=== PATIENT | male | born 1950 | race Caucasian/White ===

== ENCOUNTER → 2018-10-14 09:57 | Outpatient (CLI) | payer OTHER | END | disposition home or self-care (01) | LOC: D.HCCARDIO 09:57 | DX: R94.31 Abnormal electrocardiogram [ECG] [EKG] (principal) ==

== ENCOUNTER → 2019-03-15 14:28 | Outpatient (CLI) | payer OTHER ==
[~2019-03-15 14:28] MED LIST: ASPIRIN81 MG PO; CARDIZEM 90 MG90 MG PO; GLUCOPHAGE500 MG PO; HUMALOG 30100 UNITS/ SC; HUMULIN R100 U/ML SC; LISINOPRIL-HCT1 EAC4 PO; NEURONTIN 300300 MG PO; PLAVIX75 MG PO; SYNTHROID100 MCG PO; TOUJEO SOL300 UNIT/1 SC; ZOCOR20 MG PO
[2019-04-13 10:39] VITALS: BMI 34.8
== END | disposition home or self-care (01) ==
LOC: D.US 14:28
PROVIDERS: ATTEND Family Medicine
DX: R09.89 Other specified symptoms and signs involving the circulatory and respiratory systems (principal)

== ENCOUNTER → 2019-04-06 13:30 | Outpatient (CLI) | payer OTHER ==
[2019-04-13 10:39] VITALS: BMI 34.8
== END | disposition home or self-care (01) ==
LOC: D.CT 13:30
PROVIDERS: ATTEND Internal Medicine Cardiovascular Disease
DX: I65.21 Occlusion and stenosis of right carotid artery (principal)

== ENCOUNTER 2019-04-11 14:59 | Inpatient (IN) | payer OTHER ==
[~2019-04-11] VITALS: Ht 180.3 cm; Wt 114.5 kg
[2019-04-11] MEDS ORDERED: ZOCOR20 MG PO (15:26)
[2019-04-11] MEDS ORDERED: SYNTHROID100 MCG PO (15:27)
[2019-04-11] MEDS ORDERED: LISINOPRIL-HCT1 EAC4 PO (15:27)
[2019-04-11] MEDS ORDERED: NEURONTIN 300300 MG PO (15:27)
[2019-04-11] MEDS ORDERED: TOUJEO SOL300 UNIT/1 SC (15:28)
[2019-04-11] MEDS ORDERED: HUMULIN R100 U/ML SC (15:29)
[2019-04-11] MEDS ORDERED: GLUCOPHAGE500 MG PO (15:29)
[2019-04-11] MEDS ORDERED: CARDIZEM 90 MG90 MG PO (15:30)
[2019-04-11] MEDS ORDERED: PLAVIX75 MG PO (15:31)
[2019-04-11 16:31] LABS: APPEARANCE CLEAR (CLEAR); BILIRUBIN NEGATIVE (NEGATIVE); COLOR YELLOW (YELLOW); GLUCOSE NEGATIVE (NEGATIVE); KETONE NEGATIVE (NEGATIVE); NITRITE NEGATIVE (NEGATIVE); PROTEIN NEGATIVE (NEGATIVE); SPECIFIC GRAVITY 1.015 (1.005-1.020); UROBILINOGEN NORMAL (NORMAL)
[2019-04-11 16:49] LABS: HEMATOCRIT 37.7 % (42.0-54.0); MCH 30.9 pg (26.0-34.0); MCHC 34.5 g/dL (31.0-37.0); MCV 89.5 fL (80.0-100.0); MEAN PLATELET VOLUME 11.2 fL (7.4-10.4); RBC 4.21 10x6/uL (4.20-6.10); RDW 13.8 % (11.5-14.5)
[2019-04-11 16:58] LABS: INR 1.1 (0.85-1.17); PROTIME 13.7 SECONDS (11.6-15.0)
[2019-04-11 16:59] LABS: APTT 32.1 SECONDS (22.8-39.4)
[2019-04-11 17:30] LABS: ALBUMIN 3.9 g/dL (3.4-5.0); ANION GAP 14.9 mmol/L (8-16); BILIRUBIN - TOTAL 0.27 mg/dL (0.2-1.3); CALCIUM 9.2 mg/dL (8.5-10.1); CARBON DIOXIDE 26.5 mmol/L (21.0-32.0); CREATININE - SERUM 1.1 mg/dL (0.6-1.3); POTASSIUM - SERUM 4.4 mmol/L (3.5-5.1); PROTEIN - SERUM 7.3 g/dL (6.4-8.2)
[2019-04-12] VITALS (80 sets, daily range): BP systolic 105–174; BP diastolic 45–99; BMI 33.6; BMI 34.9
[2019-04-12] MEDS ORDERED: HUMALOG 30100 UNITS/ SC (05:22)
--- NOTE | 2019-04-12 10:50 | NUR ---
PT RECIEVED TO ROOM ALERT AND ORIENTED ON 6L O2 R CEA INCISION CDI WITH ALFONSO DRAIN COMPRESSED, ICE APPLIED, L SUBCLAVIAN CVL DRESSING CDI, SEE IV FLOWSHEET, R RADIAL A LINE ZEROED WITH GOOD WAVEFORM WRIST PROTECTOR IN PLACE, CRITICORE HOSKINS DRAINING YELLOW URINE, ABLE TO FOLLOW ALL COMMANDS AND MOVE ALL EXTREMETIES, FAMILY UPDATED BY DR WORRELL, WILL CONTINUE TO MONITOR
--- NOTE | 2019-04-12 18:22 | NUR ---
1200 REFUSED LUNCH 1300 REPOSITIONED 1500REPOSITIONED 1700 DRANK CHICKEN BROTH FOR DINNER, REPOSITIONED, SEE IV FLOWSHEET FOR TITRATIONS
--- NOTE | 2019-04-12 19:00 | NUR ---
PT AOX4, PUPILS EQUAL AND REACTIVE. SNOW TECHNICIAN EQUAL, MOVES EXTREMITIES X4 AGAINST GRAVITY. RESPIRATIONS UNLABORED, LUNG SOUNDS CLEAR/DIMINISHED. SPO2 93, 1L O2 VIA NC. S1S2 HEARD, PERIPHERAL PULSES PRESENT. R NECK WITH DRESSING CDI, NO TRACHEAL DEVIATION PRESENT. R CHEST ALFONSO WITH DRSG CDI, COMPRESSED. NO COMPLAINTS OF PAIN, VSS. DENIES NEEDS. CALL LIGHT WITHIN PT REACH, CPOC.
--- NOTE | 2019-04-12 21:00 | NUR ---
NO CHANGES AT THIS TIME. PT RESTING QUIELTY. REPOSITIONED FOR COMFORT. REACHING 2000 X10 ON I/S. VSS, DENIES PAIN AT THIS TIME. CALL LIGHT AND BEDSIDE TABLE WITHIN PT REACH. CPOC.
--- NOTE | 2019-04-12 23:00 | NUR ---
REASSESSMENT COMPLETE, NO NEW CHANGES AT THIS TIME. PT REPOSITIONED FOR COMFORT, PROMINENCES BRIDGED. COMPLETED I/S REACHING UP TO 2000 X10. FRESH WATER TO BEDSIDE. DENIES FURTHER NEEDS. CALL LIGHT AND BEDSIDE TABLE WITHIN PT REACH. CPOC.
[2019-04-13] VITALS (99 sets, daily range): BP systolic 98–170; BP diastolic 47–76; Ht 180.3 cm; Wt 114.5 kg
--- NOTE | 2019-04-13 01:00 | NUR ---
PT RESTING QUIETLY, REPOSITIONED FOR COMFORT. R NECK DRSG CDI, R ALFONSO COMPRESSED. AOX4, TONGUE MIDLINE, RESAW OPERATOR EQUAL. VSS, CPOC.
--- NOTE | 2019-04-13 03:00 | NUR ---
REASSESSMENT COMPLETE, NO NEW CHANGES AT THIS TIME. PT REPOSITIONED FOR COMFORT, PARTIAL LINEN CHANGE PROVIDED. I/S COMPLETED REACHING 2000 X10. DENIES PAIN AT THIS TIME, VSS. CPOC.
--- NOTE | 2019-04-13 05:40 | NUR ---
DEVAN AT BEDSIDE, ALFONSO DRAIN D/C'D, TOLERATED WELL. VSS.
--- NOTE | 2019-04-13 07:43 | NUR ---
PT AWAKE, A&O. DENIES PAIN. SHIFT ASSESSMENT COMPLETE. PT REMAINS ON NITRO AND CLEVIPREX GTT. HOSKINS CATHETER IN USE. CLEAR YELLOW URINE. RIGHT RADIAL ART LINE NOTED. INCISION AT RIGHT NECK C,D,I. DRESSING AT RIGHT UPPER CHEST/LOWER NECK FROM REMOVED ALFONSO DRAIN SHOWS SOME PINK TINGE ON DRESSING.
--- NOTE | 2019-04-13 11:09 | NUR ---
ART LINE REMOVED, NO BLEEDING, TIP INTACT. HOSKINS CATHETER REMOVED, TIP INTACT.
--- NOTE | 2019-04-13 13:58 | OP ---
PATIENT NAME: ALLEN LOMAX V MEDICAL RECORD: [id number] :48 LOCATION:[facility] D.CV ADMISSION DATE:04/12/19 SURGEON: KRISHNA WORRELL MD DATE OF OPERATION: 04/12/2019 SURGEON: Krishna Worrell MD ANESTHESIA: General, Dr. Salinas. OPERATION PERFORMED: Right carotid endarterectomy with patch angioplasty. PREOPERATIVE DIAGNOSIS: Severe right internal carotid artery stenosis. POSTOPERATIVE DIAGNOSIS: Severe right internal carotid artery stenosis. INDICATIONS FOR OPERATION: Severe right internal carotid artery stenosis. FINDINGS AT OPERATION: Severe right internal carotid artery stenosis with an area of stenosis greater than 80%. ESTIMATED BLOOD LOSS: Less than 100 mL. DESCRIPTION OF PROCEDURE: After informed consent, adequate preoperative medication evaluation, the patient was brought to the operating room, placed on the table in supine position. After induction of general endotracheal anesthesia and application of appropriate monitoring devices, the right neck was prepped and draped in a sterile field, utilizing Betadine scrub, alcohol, and Betadine solution. A Betadine-impregnated drape was also used. An oblique incision was made in the skin crease. Dissection carried down to the fascia. Hemostasis maintained with electrocautery. Facial vein was identified and divided. Utilizing sharp dissection, the common carotid, internal and external carotid arteries were dissected free from surrounding structures, protecting the neurological structures. The patient was given a calculated dose of heparin, after 3 minutes, clamps were applied. After 2 minutes, no EEG change. The arteriotomy was made and extended with Flowers scissors. Artery underwent endarterectomy sharply. Artery underwent extensive debridement and irrigation. Utilizing a CorMatrix vascular patch, a running 6-0 Prolene suture, the arteriotomy was closed with a patch angioplasty technique. All maneuvers to remove trapped air were performed. The patient was given a calculated dose of protamine to reverse the heparin. Hemostasis was achieved. A #7 Ralph-Martinez drain was left in depths of the wound and brought out through the base of the neck. Neck was again irrigated. Instrument and sponge count were correct times 2. Neck was closed in layers utilizing 3-0 Vicryl on the platysma, 5-0 subcuticular Monocryl on the skin. Sterile dressings were applied. The patient tolerated the procedure well and was transferred to the CV ICU in satisfactory condition. TRANSINT:[id number] Voice Confirmation ID: [id number] DOCUMENT ID: [id number] OPERATIVE REPORT [id number] ALLEN LOMAX EDWARD MD at 1358 CC: [id number] DICTATION DATE: 04/12/19 1007 SKIRT PANEL ASSEMBLER: 04/12/19 1041 ADM IN [facility] [address] [place] [address]
--- NOTE | 2019-04-13 14:04 | NUR ---
UP IN BED AWAKE AT THIS TIME. NO ACUTE DISTRESS NOTED. PT ASSISTED WITH REPOSITION Q2H. WILL CONTINUE PLAN OF CARE.
--- NOTE | 2019-04-13 15:49 | MORECARE ---
CASE MANAGEMENT DISCHARGE SUMMARY PATIENT: ALLEN LOMAX V UNIT: [id number] ADM DATE: 04/12/19 AGE: 68 : 49 SEX: M ROOM/BED: [facility] AUTHOR: PAU JACOB PHYSICIAN: REFERRING PHYSICIAN: KRISHNA WORRELL MD DATE OF SERVICE: 04/13/19 Discharge Plan Patient Name: ALLEN LOMAX [facility] : 1950 Planned Disposition: Home with Home Health Anticipated Discharge Date: Discharge Date: Expected LOS: Initial Reviewer: [email or web address] Initial Review Date: 04/12/2019 Generated: 04/13/19 4:49 pm DCPIA - Discharge Planning Initial Assessment Updated by [email or web address]: Mary Vigil on 04/13/19 3:47 pm * Is the patient Alert and Oriented? Yes * How many steps to enter\exit or inside your home? * PCP PULLING * [facility] * Preadmission Environment Home with Family * ADLs Independent * Equipment Cane * List name and contact numbers for known caregivers / representatives who currently or will assist patient after discharge: NATALIYA LOMAX - - [phone] * Verbal permission to speak to the caregivers and representatives has been obtained from the patient. Yes * Community resources currently utilized None * Please name any agencies selected above. REQUESTING HH AT DISCHARGE * Additional services required to return to the preadmission environment? No * Can the patient safely return to the preadmission environment? Yes * Has this patient been hospitalized within the prior 30 days at any hospital? No Patient Name: ALLEN LOMAX Page [id number] at 1549 All edits/amendments must be made on the electronic document DICTATION DATE: 04/13/191548 MODEL AND MOLD MAKER: AJ 04/13/19 1549 RPT#: [id number] DC DATE: STATUS: ADM IN [facility] [address] [place] [address] END OF REPORT
--- NOTE | 2019-04-13 15:56 | MORECARE ---
CASE MANAGEMENT DISCHARGE SUMMARY PATIENT: ALLEN LOMAX V UNIT: [id number] ADM DATE: 04/12/19 AGE: 68 : 49 SEX: M ROOM/BED: D.[facility] AUTHOR: CECIL,DOC PHYSICIAN: REFERRING PHYSICIAN: KRISHNA WORRELL MD DATE OF SERVICE: 04/13/19 Discharge Plan Patient Name: ALLEN LOMAX Facility: [facility]:[place] : 1950 Planned Disposition: Home with Home Health Anticipated Discharge Date: Discharge Date: Expected LOS: Initial Reviewer: [email or web address] Initial Review Date: 04/12/2019 Generated: 04/13/19 4:56 pm Comments DCP- Discharge Planning Updated by [email or web address]: Mary Vigil on 04/13/19 2:[address] Patient Name: ALLEN LOMAX Admission Status: Urgent Accout number: [id number] Admission Date: 04-12-2019 : 1950 Admission Diagnosis: Attending: KRISHNA WORRELL Current LOS: 1 Anticipated DC Date: Planned Disposition: Home with Home Health Primary Insurance: [employer] Discharge Planning Comments: CM met with patient at bedside after explaining CM role and obtaining verbal consent. Patient lives at home with his Nataliya where he is independent with his care and plans to return there upon discharge. Patient feels this would be a safe discharge. CM discussed availability / needs of home health and medical equipment. Patient denies any discharge needs at this time. Patient and spouse stated that PT recommended he have HH to eval for stability. CHUN signed for HH. Patient states he will have his family drive him home upon discharge. CM will continue to follow and assist as needed with discharge planning / needs. Casino Porter: Mary Vigil DCPIA - Discharge Planning Initial Assessment Updated by [email or web address]: Mary Vigil on 04/13/19 3:47 pm * Is the patient Alert and Oriented? Yes * How many steps to enter\exit or inside your home? * PCP PULLING * [facility] * Preadmission Environment Home with Family * ADLs Independent * Equipment Cane * List name and contact numbers for known caregivers / representatives who currently or will assist patient after discharge: NATALIYA LOMAX - - [phone] * Verbal permission to speak to the caregivers and representatives has been obtained from the patient. Yes * Community resources currently utilized None * Please name any agencies selected above. REQUESTING HH AT DISCHARGE * Additional services required to return to the preadmission environment? No * Can the patient safely return to the preadmission environment? Yes * Has this patient been hospitalized within the prior 30 days at any hospital? No Coverage Notice Reviewer: [email or web address] Wero Vigil Notice Issued Date-Time: 04/13/2019 15:49 Notice Type: Patient Choice Letter Notice Delivered To: Family Member Relationship to Patient: Spouse Social Worker Assistant Name: Delivery Method: HAND - Hand Delivered Isabella Days: Prior Verbal Notification: Recipient Understood Notice: Yes Recipient Signature: Yes Med Rec Note Co-signed by Attending: Coverage Notice Comment: Last DP export: 04/13/19 2:49 p Patient Name: ALLEN LOMAX Page [phone] at 1556 All edits/amendments must be made on the electronic document DICTATION DATE: 04/13/19 1556 EDUCATIONAL PSYCHOLOGY PROFESSOR: AJ 04/13/19 1556 RPT#: [id number] DC DATE: STATUS: ADM IN [facility] [address] [place] [address] END OF REPORT
--- NOTE | 2019-04-13 16:03 | NUR ---
UP IN CHAIR VISITING WITH AT THIS TIME. NO ACUTE DISTRESS NOTED. VSS. WILL CONTINUE PLAN OF CARE.
--- NOTE | 2019-04-13 18:01 | NUR ---
CONTINENT VOID NOTED VIA URINAL AT THIS TIME. 250 ML APPROX. NO ACUTE DISTRESS NOTED. PT UP IN CHAIR. CALL LIGHT IN REACH. IV DRIPS NITRO AND CLEXIPREX TITRATED TO ORDER, SEE IV FLOWSHEET. WILL CONTINUE PLAN OF CARE.
--- NOTE | 2019-04-13 19:45 | NUR ---
REPORT REC'D AND PATIENT REC'D UP IN CHAIR, AWAKE, ALERT, ORIENTED X 4, LDLSCL DRSG CDI WITH PLASMALYTE @ 3OCC/HR, CLEVIPREX @ 5MG/HR, AND NITROGLYCERIN @ 12 CC DECREASED TO 11CC/HR OR 36.67MCG/MIN, RIGHT NECK DRSG CDI, RIGHT UPPER CHEST DRSG TO PREVIOUS SITE CDI, PT MAEE, SMILE SYMMETRICAL, PT REQUESTING TO GET IN BED, LINEN CHANGE PROVIDED, AND PT ASSISTED X 1 OVER TO BED, BED CONTROL IN REACH AND PT INSTRUCTED ON USE, CALL LIGHT IN REACH, SR UP X 2, BED IN LOW POSITION.
--- NOTE | 2019-04-13 20:05 | NUR ---
AT BS, VISITING WITH PATIENT.
--- NOTE | 2019-04-13 21:00 | NUR ---
FSBS 205, EVENING MEDS GIVEN WITH WATER, PT HAD NO DIFFICULTY SWALLOWING, VISITIORS REMAIN AT BS, UPDATE GIVEN AND QUESTIONS ANSWERED, 4 UNITS HUMALOG GIVEN SUBQUE, PT DENIES FURTHER NEEDS, BED IN LOW POSITION, CALL LIGHT IN REACH.
--- NOTE | 2019-04-13 23:30 | NUR ---
REASSESSMENT COMPLETED, PT REMAINS ORIENTED X 4, O2 SAT DECREASED TO 86% WHILE SLEEPING, PT AWAKENED AND DEEP BREATHING AND COUGHING DONE, O2 INCREASED TO 3 LITERS, O2 SAT 90%, WILL CONT TO MONITOR FOR CHANGES.
[2019-04-14] VITALS (30 sets, daily range): BP systolic 109–174; BP diastolic 54–76
--- NOTE | 2019-04-14 00:45 | NUR ---
NITROGLYCERIN WEANED OFF.
--- NOTE | 2019-04-14 01:20 | NUR ---
PT RESTING EYES CLOSED, RESP EVEN AND UNLABORED, O2 SAT DECREASED TO 82% WHILE SLEEPING, PT APPEARS TO HAVE PERIODS OF APNEA, CM-SR WITH FREQUENT PAC'S, BP STABLE WEANING CLEVIPREX TOLERATED.
--- NOTE | 2019-04-14 02:45 | NUR ---
PT ASSISTED OUT OF BED AND UP TO BSC, O2 SAT 96%, PT HAD SMALL FORMED STOOL AND VOIDED, GOT SELF BACK TO BED BEFORE TURNING SENIOR SUPPORT ENGINEER LIGHT, LINES STRAIGHTENED AND SR UP X 2, BEDSIDE TABLE, AND CALL LIGHT IN REACH.
--- NOTE | 2019-04-14 03:00 | NUR ---
REASSESSMENT COMPLETED, PT REPOSITIONED UP IN BED, PT PULLING 1750 - 2000 ON IS AT THE TIME, O2 SAT 94%, PT REQUESTING ICE CHIPS, ICE CHIPS PROVIDED, PT DENIES PAIN OR OTHER NEEDS.
--- NOTE | 2019-04-14 04:00 | NUR ---
NO CHANGES IN STATUS
--- NOTE | 2019-04-14 06:00 | NUR ---
AM MEDS GIVEN, FSBS 198 2 UNITS HUMALOG GIVEN SUBQUE, PT DENIES PAIN OR OTHER NEEDS.
[2019-04-14] MEDS ORDERED: ASPIRIN81 MG PO (08:54)
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
--- NOTE | 2019-04-14 13:08 | NUR ---
[address] WORRELL-DHIRAJ TO DISCHARGE-DISCHARGE INSTRUCTIONS GIVEN L CVL REMOVED PER PROTOCOL-HEMOSTASIS OBTAINED 1220-PT DISCHARGED IN CARE OF HOME
--- NOTE | 2019-04-14 13:18 | MORECARE ---
CASE MANAGEMENT DISCHARGE SUMMARY PATIENT: ALLEN LOMAX V UNIT: [id number] ADM DATE: 04/12/19 AGE: 68 : 49 SEX: M ROOM/BED: D[facility] AUTHOR: CECIL,DOC PHYSICIAN: REFERRING PHYSICIAN: KRISHNA WORRELL MD DATE OF SERVICE: 04/14/19 Discharge Plan Patient Name: ALLEN LOMAX Facility: [facility] : 1950 Planned Disposition: Home with Home Health Anticipated Discharge Date: Discharge Date: Expected LOS: Initial Reviewer: [email or web address] Initial Review Date: 04/12/2019 Generated: 04/14/19 2:18 pm Comments DCP- Discharge Planning Updated by [email or web address]: Mary Vigil on 04/13/19 2:[address] Patient Name: ALLEN LOMAX Admission Status: Urgent Accout number: [id number] Admission Date: 04-12-2019 : 1950 Admission Diagnosis: Attending: KRISHNA WORRELL Current LOS: 1 Anticipated DC Date: Planned Disposition: Home with Home Health Primary Insurance: [employer] Discharge Planning Comments: CM met with patient at bedside after explaining CM role and obtaining verbal consent. Patient lives at home with his Nataliya where he is independent with his care and plans to return there upon discharge. Patient feels this would be a safe discharge. CM discussed availability / needs of home health and medical equipment. Patient denies any discharge needs at this time. Patient and spouse stated that PT recommended he have HH to eval for stability. CHUN signed for HH. Patient states he will have his family drive him home upon discharge. CM will continue to follow and assist as needed with discharge planning / needs. [employer] Open Stack Administrator: Mary Vigil DCPIA - Discharge Planning Initial Assessment Updated by [email or web address]: Mary Vigil on 04/13/19 3:47 pm * Is the patient Alert and Oriented? Yes * How many steps to enter\exit or inside your home? * PCP P[facility]ING * [facility] * Preadmission Environment Home with Family * ADLs Independent * Equipment Cane * List name and contact numbers for known caregivers / representatives who currently or will assist patient after discharge: NATALIYA LOMAX - - [phone] * Verbal permission to speak to the caregivers and representatives has been obtained from the patient. Yes * Community resources currently utilized None * Please name any agencies selected above. REQUESTING HH AT DISCHARGE * Additional services required to return to the preadmission environment? No * Can the patient safely return to the preadmission environment? Yes * Has this patient been hospitalized within the prior 30 days at any hospital? No External Providers [facility] Next Contact Date: Service Request Date: Service Type: Resolution: Reviewer: Comments: Coverage Notice Reviewer: [id number] - Mary Vigil Notice Issued Date-Time: 04/13/2019 15:49 Notice Type: Patient Choice Letter Notice Delivered To: Family Member Relationship to Patient: Spouse Police Specialist Name: Delivery Method: HAND - Hand Delivered Isabella Days: Prior Verbal Notification: Recipient Understood Notice: Yes Recipient Signature: Yes Med Rec Note Co-signed by Attending: Coverage Notice Comment: Last DP export: 04/13/19 2:56 p Patient Name: ALLEN LOMAX Page [id number] at 1318 All edits/amendments must be made on the electronic document DICTATION DATE: 04/14/19 1318 THIRD LOADER: AJ 04/14/19 1318 RPT#: [id number] DC DATE: STATUS: ADM IN [facility] [address] [place] [address] END OF REPORT
--- NOTE | 2019-04-14 14:18 | MORECARE ---
CASE MANAGEMENT DISCHARGE SUMMARY PATIENT: ALLEN LOMAX V UNIT: [id number] ADM DATE: 04/12/19 AGE: 68 : [birth year] SEX: M [facility] AUTHOR: CECIL,DOC PHYSICIAN: REFERRING PHYSICIAN: KIRSHNA WORRELL MD DATE OF SERVICE: 04/14/19 Discharge Plan Patient Name: ALLEN LOMAX Facility: [facility]:[place] : 1950 Planned Disposition: Home with Home Health Anticipated Discharge Date: Discharge Date: 04/14/2019 Expected LOS: Initial Reviewer: [email or web address] Initial Review Date: 04/12/2019 Generated: 04/14/19 3:18 pm Comments DCP- Discharge Planning Updated by [email or web address]: Mary Vigil on 04/13/19 2:[address] Patient Name: ALLEN LOMAX Admission Status: Urgent Accout number: [id number] Admission Date: 04-12-2019 : 1950 Admission Diagnosis: Attending: KRISHNA WORRELL Current LOS: 1 Anticipated DC Date: Planned Disposition: Home with Home Health Primary Insurance: [employer] Discharge Planning Comments: CM met with patient at bedside after explaining CM role and obtaining verbal consent. Patient lives at home with his Nataliya where he is independent with his care and plans to return there upon discharge. Patient feels this would be a safe discharge. CM discussed availability / needs of home health and medical equipment. Patient denies any discharge needs at this time. Patient and spouse stated that PT recommended he have HH to eval for stability. CHUN signed for HH. Patient states he will have his family drive him home upon discharge. CM will continue to follow and assist as needed with discharge planning / needs. Beef Skinner: Mary Vigil DCPIA - Discharge Planning Initial Assessment Updated by [email or web address]: Mary Vigil on 04/13/19 3:47 pm * Is the patient Alert and Oriented? Yes * How many steps to enter\exit or inside your home? * PCP PULLING * [facility] * Preadmission Environment Home with Family * ADLs Independent * Equipment Cane * List name and contact numbers for known caregivers / representatives who currently or will assist patient after discharge: NATALIYA LOMAX - - [phone] * Verbal permission to speak to the caregivers and representatives has been obtained from the patient. Yes * Community resources currently utilized None * Please name any agencies selected above. REQUESTING HH AT DISCHARGE * Additional services required to return to the preadmission environment? No * Can the patient safely return to the preadmission environment? Yes * Has this patient been hospitalized within the prior 30 days at any hospital? No Coverage Notice Reviewer: [id number] Wero Vigil Notice Issued Date-Time: 04/13/2019 15:49 Notice Type: Patient Choice Letter Notice Delivered To: Family Member Relationship to Patient: Spouse Magento Web Developer Name: Delivery Method: HAND - Hand Delivered Isabella Days: Prior Verbal Notification: Recipient Understood Notice: Yes Recipient Signature: Yes Med Rec Note Co-signed by Attending: Coverage Notice Comment: Last DP export: 04/14/19 12:18 p Patient Name: ALLEN LOMAX Page [id number] at 1418 All edits/amendments must be made on the electronic document DICTATION DATE: 04/14/19 1418 MAGENTO WEB DEVELOPER: AJ 04/14/19 1418 RPT#: [id number] DC DATE:04/14/19 STATUS: DIS IN [facility] [address] [place] [address] END OF REPORT
--- NOTE | 2019-04-14 16:11 | MORECARE ---
CASE MANAGEMENT DISCHARGE SUMMARY PATIENT: ALLEN LOMAX V UNIT: [id number] ADM DATE: 04/12/19 AGE: 68 : 48 SEX: M ROOM/BED: [facility] AUTHOR: CECIL,DOC PHYSICIAN: REFERRING PHYSICIAN: KRISHNA WORRELL MD DATE OF SERVICE: 04/14/19 Discharge Plan Patient Name: ALLEN LOMAX Facility: [facility]:[place] : 1950 Planned Disposition: Home with Home Health Anticipated Discharge Date: Discharge Date: 04/14/2019 Expected LOS: Initial Reviewer: [email or web address] Initial Review Date: 04/12/2019 Generated: 04/14/19 5:11 pm Comments DCP- Discharge Planning Updated by [email or web address]: Mary Vigil on 04/14/19 3:[address] D/C HOME W [facility] CM CONTACTED RAY WITH [facility] AND FAXED RECORDS. CANDACE STATED THEY WOULD BE OUT TO ADMIT PATIENT ON WEDNESDAY FOR PT. TO FOLLOW HH. DCP- Discharge Planning Updated by [email or web address]: Mary Vigil on 04/13/19 2:[address] Patient Name: ALLEN LOMAX Admission Status: Urgent Accout number: [id number] Admission Date: 04-12-2019 : 1950 Admission Diagnosis: Attending: KRISHNA WORRELL Current LOS: 1 Anticipated DC Date: Planned Disposition: Home with Home Health [facility] Discharge Planning Comments: CM met with patient at bedside after explaining CM role and obtaining verbal consent. Patient lives at home with his Nataliya where he is independent with his care and plans to return there upon discharge. Patient feels this would be a safe discharge. CM discussed availability / needs of home health and medical equipment. Patient denies any discharge needs at this time. Patient and spouse stated that PT recommended he have HH to eval for stability. CHUN signed for HH. Patient states he will have his family drive him home upon discharge. CM will continue to follow and assist as needed with discharge planning / needs. Supervisor [employer] Information Center: Mary Vigil DCPIA - Discharge Planning Initial Assessment Updated by [email or web address]: Mary Vigil on 04/13/19 3:47 pm * Is the patient Alert and Oriented? Yes * How many steps to enter\exit or inside your home? * PCP [facility] * [facility] * Preadmission Environment Home with Family * ADLs Independent * Equipment Cane * List name and contact numbers for known caregivers / representatives who currently or will assist patient after discharge: NATALIYA LOMAX - - [phone] * Verbal permission to speak to the caregivers and representatives has been obtained from the patient. Yes * Community resources currently utilized None * Please name any agencies selected above. REQUESTING HH AT DISCHARGE * Additional services required to return to the preadmission environment? No * Can the patient safely return to the preadmission environment? Yes * Has this patient been hospitalized within the prior 30 days at any hospital? No Coverage Notice Reviewer: [email or web address] Wero Vigil Notice Issued Date-Time: 04/13/2019 15:49 Notice Type: Patient Choice Letter Notice Delivered To: Family Member Relationship to Patient: Spouse [employer] Person Name: Delivery Method: HAND - Hand Delivered Isabella Days: Prior Verbal Notification: Recipient Understood Notice: Yes Recipient Signature: Yes Med Rec Note Co-signed by Attending: Coverage Notice Comment: Last DP export: 04/14/19 1:18 p Patient Name: ALLEN LOMAX Page [id number] at 1611 All edits/amendments must be made on the electronic document DICTATION DATE: 04/14/19 1611 STAFF INTERPRETER: AJ 04/14/19 1611 RPT#: [id number] DC DATE:04/14/19 STATUS: DIS IN [facility] [address] [place] [address] END OF REPORT
== END 2019-04-14 13:31 | disposition home health service (06) | DRG 39 ==
LOC: D.SDCHOLD 04-12 05:00 → D.CVICU 04-12 05:00 → D.SDCHOLD 04-12 07:30 → D.CVICU 04-12 09:06
PROVIDERS: ADMIT Internal Medicine Cardiovascular Disease; ATTEND Internal Medicine Cardiovascular Disease
PROC: 03CK0ZZ Extirpation of Matter from Right Internal Carotid Artery, Open Approach (ICD-10-PCS; 2019-04-12)
PROC: 03UK0JZ Supplement Right Internal Carotid Artery with Synthetic Substitute, Open Approach (ICD-10-PCS; principal; 2019-04-12 07:30)
DX: I65.21 Occlusion and stenosis of right carotid artery (principal); E03.9 Hypothyroidism, unspecified; E11.40 Type 2 diabetes mellitus with diabetic neuropathy, unspecified; E78.5 Hyperlipidemia, unspecified; I10 Essential (primary) hypertension; K21.9 Gastro-esophageal reflux disease without esophagitis; M79.2 Neuralgia and neuritis, unspecified; R06.02 Shortness of breath

== ENCOUNTER → 2020-04-30 09:34 | Outpatient (CLI) | payer OTHER ==
[2019-04-13 10:39] VITALS: BMI 34.8
== END | disposition home or self-care (01) ==
LOC: D.US 09:34
PROVIDERS: ATTEND Internal Medicine Cardiovascular Disease
DX: I65.29 Occlusion and stenosis of unspecified carotid artery (principal)